=== PATIENT | female | born 2000 | race American Indian/Alaskan Native ===

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

== ENCOUNTER 2019-07-06 11:01 | Emergency (ER) | payer SELFPAY ==
--- NOTE | 2019-07-06 11:35 | Event Note ---
ED Screening Note Date of service: 07/06/19 Time: 11:31 ED Screening Note: This is a 18 y.o. F. that presents to the ER with low back pain for several days. Denies urinary frequency, urgency, dysuria, recent injury, or radiating pain. This initial assessment/diagnostic orders/clinical plan/treatment(s) is/are subject to change based on patients health status, clinical progression and re- assessment by fellow clinical providers in the ED. Further treatment and workup at subsequent clinical providers discretion. Patient/guardian urged not to elope from the ED as their condition may be serious if not clinically assessed and managed. Initial orders include: Labs
[2019-07-06 12:54] LABS: Bilirubin,Urine NEG (Negative); Blood,Urine NEG (Negative); Color,Urine Yellow (Yellow); Mucus,Urine FEW /HPF; Protein,Urine <15 mg/dL mg/dL (Negative)
[2019-07-06 13:01] LABS: HCG Qualitative,Urine Negative (Negative)
--- NOTE | 2019-07-06 13:51 | XRay Report ---
XR spine lumbosacral 2-3V INDICATION / CLINICAL INFORMATION: low back pain. COMPARISON: None available. FINDINGS: BONES/JOINT(S): No acute fracture or subluxation. No significant degenerative changes. SOFT TISSUES: No significant abnormality. ADDITIONAL FINDINGS: None. Signer Name: Gael Sauceda MD Signed: 07/06/2019 1:46 PM Workstation Name: [facility] [employer]
--- NOTE | 2019-07-06 14:08 | Emergency Department Report ---
ED Back Pain/Injury HPI - General Chief Complaint: Back Pain/Injury Stated Complaint: BACK PAIN Time Seen by Provider: 07/06/19 11:30 Source: patient Limitations: No Limitations - History of Present Illness Initial Comments: This is a 18 y.o. F. that presents to the ER with low back pain for several days. Denies urinary frequency, urgency, dysuria, recent injury, or radiating pain. MD Complaint: back pain Onset/Timin -: days(s) Similar Symptoms Previously: No Place: home Radiation: none Severity: moderate Severity scale (0 -10): 5 Quality: aching Consistency: constant Improves With: none Worsens With: movement, sitting upright, walking Context: unknown Associated Symptoms: denies: numbness, difficulty urinating, incontinence, fever/chills - Related Data Previous Rx's Medication Instructions Recorded Last Taken Type Nitrofurantoin [place]/M-Cryst 100 mg PO Q12HR #14 capsule 09/09/16 Unknown Rx [Macrobid CAP] Ibuprofen [Motrin 800 MG tab] 800 mg PO Q8HR PRN #20 tablet 07/06/19 Unknown Rx Allergies Allergy/AdvReac Type Severity Reaction Status Date / Time No Known Allergies Allergy Verified 09/09/16 13:08 ED Review of Systems ROS: Stated complaint: BACK PAIN Other details as noted in HPI Constitutional: denies: chills, fever Respiratory: denies: cough, shortness of breath, wheezing Cardiovascular: denies: chest pain, palpitations Gastrointestinal: denies: abdominal pain, nausea, diarrhea Musculoskeletal: back pain (low back pain). denies: joint swelling, arthralgia Skin: denies: rash, lesions Neurological: denies: headache, weakness, paresthesias Psychiatric: denies: anxiety, depression ED Back Pain Physical Exam - Exam General: Vital signs noted. No distress. Alert and acting appropriately. Back/Abdomen: Yes Sacroiliac Tenderness (bilaterally, no step-off, no deformity, no midline tenderness), No Abdominal Tenderness, No Perithoracic Tenderness, No Perilumbar Tenderness, No Flank Tenderness, No Straight Leg Raise Pain Neuro: Yes Normal Sensation, Yes Normal DTR's, Yes Normal Gait, No Motor Weakness ED Course Vital Signs 07/06/19 11:23 Temperature 99.9 F H Pulse Rate 124 H Respiratory 13 Rate Blood Pressure 127/76 [Right] O2 Sat by Pulse 98 Oximetry Vital Signs 07/06/19 07/06/19 11:23 14:36 Temperature 99.9 F H Pulse Rate 124 H 112 H Respiratory 13 20 Rate Blood Pressure 127/76 111/64 [Right] O2 Sat by Pulse 98 96 Oximetry Ed Back Pain Tests - Tests Tests: Normal UA, Normal X Rays ED Medical Decision Making - Radiology Data Radiology results: report reviewed XR spine lumbosacral 2-3V INDICATION / CLINICAL INFORMATION: low back pain. COMPARISON: None available. FINDINGS: BONES/JOINT(S): No acute fracture or subluxation. No significant degenerative changes. SOFT TISSUES: No significant abnormality. ADDITIONAL FINDINGS: None. - Medical Decision Making This is a 18 y.o. female presents with low back pain for 3 days. Vitals are stable inpatient in no acute distress. Denies recent injury. Given History and Exam the patient appears to be at low risk for Spinal Cord Compression Syndrome, Vertebral Malignancy/Mets, acute Spinal Fracture, Vertebral Osteomyelitis, Epidural Abscess, Infected or Obstructing Kidney Stone. Urinalysis, urine test, and x-ray of L-spine was obtained. All unremarkable. No signs of acute findings on x-ray. Appears most likely to be secondary to non-emergent musculoskeletal etiology vs non-emergent disc herniation. Given analgesics and steroid injection while in the ER. Start ibuprofen for pain. Rice therapy instructions given. Strict return precautions discussed with patient with full understanding. Advised patient to follow up promptly with primary care provider. Critical care attestation.: If time is entered above; I have spent that time in minutes in the direct care of this critically ill patient, excluding procedure time. ED Disposition Clinical Impression: Strain of muscle, fascia and tendon of lower back, initial encounter Lumbago without sciatica Qualifiers: Chronicity: acute Back pain laterality: bilateral Qualified Code(s): M54.5 - Low back pain Disposition: - TO HOME OR SELFCARE Is pt being admited?: No Condition: Stable Instructions: Low Back Strain (ED), Lumbar Radiculopathy (ED), Core Strengthening Exercises (GEN), RICE Therapy (ED) Additional Instructions: Rest Use ice or heat on affected area for 20 minutes and off for 2 hours. Take pain medication every 8 hours as needed for pain. Follow up with Primary Care Provider in 2-3 days. Prescriptions: Ibuprofen [Motrin 800 MG tab] 800 mg PO Q8HR PRN #20 tablet PRN Reason: Pain , Severe (7-10) Referrals: [facility] [Provider Group] - 3-5 Days [facility] [Outside] - 3-5 Days [facility] [Outside] - 3-5 Days Forms: Work/School Release Form(ED) Time of Disposition: 14:23
[2019-07-06] MEDS ORDERED: dexAMETHasone 4 MG/ML VIAL IM ONE (14:24)
[2019-07-06] MEDS ORDERED: KETOROLAC 30 MG/1 ML INJ IM ONE (14:24)
[2019-07-06 14:38] VITALS: BP 111/64
== END 2019-07-06 15:37 | disposition home or self-care (01) ==
LOC: ED 11:01
DX: S39.012A Strain of muscle, fascia and tendon of lower back, initial encounter (principal); Z79.899 Other long term (current) drug therapy; X58.XXXA Exposure to other specified factors, initial encounter; Y93.89 Activity, other specified; Y92.89 Other specified places as the place of occurrence of the external cause; Y99.8 Other external cause status
CPT/HCPCS: 72100; 81001; 81025; 96372; 99283; J1100; J1885